=== PATIENT | male | born 1930 | race Caucasian/White ===

== ENCOUNTER 2016-12-27 12:21 | Emergency (ER) | payer MEDICARE ==
[~2016-12-27 12:21] MED LIST: ASPI81TA82 PO; BACT2OIN TOP; CLIN1CAP5 PO; GLUCTAB PO
[2016-12-27 12:30] VITALS: BP 141/87; PULSE 81; RESP 16; TEMP 98.1; O2SAT 97
[2016-12-27 12:48] LABS: AUTOMATED NEUTROPHIL # 2.7 TH/MM3 (1.8-7.7); BASOPHIL % 0.4 % (0.0-2.0); EOSINOPHIL % 0.5 % (0.0-4.0); HEMATOCRIT 24.7 % (39.0-51.0); HEMO FLAGS DIFF FINAL; LYMPH % 25.7 % (9.0-44.0); MEAN CELL VOLUME 90.3 FL (80.0-100.0); MEAN CORPUSCULAR HEMOGLOBIN 28.3 PG (27.0-34.0); MEAN CORPUSCULAR HGB CONC 31.3 % (32.0-36.0); NEUT % 68.4 % (16.0-70.0); PLATELET COUNT 113 TH/MM3 (150-450); RED BLOOD COUNT 2.74 MIL/MM3 (4.50-5.90); RED CELL DISTRIBUTION WIDTH 17.5 % (11.6-17.2)
[2016-12-27 13:06] LABS: APTT (PATIENT) 30.2 SEC (24.3-30.1); INTERNATIONAL NORMALIZED RATIO 1.1 RATIO; PROTHROMBIN TIME - PATIENT 12.7 SEC (9.8-11.6)
--- NOTE | 2016-12-27 13:07 | RADRPT ---
EXAM DATE/TIME: 12/27/2016 12:49 [facility] COMPARISON: CHEST SINGLE AP, June 01, 2013, 5:45. INDICATIONS : Chest pain. MEDICAL HISTORY : Hypertension. Myocardial infarction. SURGICAL HISTORY : CABG. ENCOUNTER: Initial ACUITY: 2 weeks PAIN SCORE: 6/10 LOCATION: Bilateral chest FINDINGS: Postsurgical features of prior median sternotomy. Mild diffuse interstitial prominence. Cardiac silho uette is mildly enlarged. Bony thorax is intact. CONCLUSION: 1. Postsurgical features. 2. Compensated cardiomegaly. 3. No acute abnormality or significant interval change. Roc Sherman MD on December 27, 2016 at 13:04 Board Certified Radiologist. This report was verified electronically.
[2016-12-27 13:08] LABS: BICARBONATE 27.5 MEQ/L (21.0-32.0); POTASSIUM 3.6 MEQ/L (3.5-5.1)
[2016-12-27 14:14] VITALS: BP 189/79; PULSE 96; RESP 19; O2SAT 99
[2016-12-27] MEDS ORDERED: ATEN25TA PO (14:14)
[2016-12-27] MEDS ORDERED: GABA100C4 PO (14:14)
[2016-12-27] MEDS ORDERED: XARE15TA PO (14:14)
[2016-12-27] MEDS ORDERED: MULT1TAB46 (14:14)
[2016-12-27] MEDS ORDERED: METF500T PO (14:14)
[2016-12-27] MEDS ORDERED: TAMS0.4C4 PO (14:14)
[2016-12-27] MEDS ORDERED: GLIM1TAB PO (14:14)
[2016-12-27] MEDS ORDERED: MELO-1 PO (14:14)
[2016-12-27] MEDS ORDERED: FURO20TA PO (14:14)
[2016-12-27] MEDS ORDERED: RANI150T PO (14:42)
--- NOTE | 2016-12-27 14:43 | PD ---
HPI Chief Complaint: Cardiac Complaint Time Seen by Provider: 13:50 Travel History International Travel<30 days: No Contact w/Intl Traveler<30days: No Traveled to known affect area: No History of Present Illness HPI Thin 86-year-old man who presents to the emergency department complaining of some chest discomfort. He states he gets that if he eats certain foods, or especially when he lays down at night. He does not get it with exertion. He does get short of breath with exertion ongoing for a while. 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 He looks otherwise well. He doesn 't take any medicine for gastritis or indigestion. History Past Medical History Narrative Medical Diabetes A. fib CAD, history of CABG Social History Alcohol Use: Yes (COUPLE OF BEERS DAILY) Tobacco Use: No Allergies-Medications (Allergen,Severity, Reaction): Coded Allergies: No Known Allergies (Verified , 12/27/16) Reported Meds & Prescriptions Reported Meds & Active Scripts Active Ranitidine (Ranitidine HCl) 150 Mg Tab 150 Mg PO BID Reported Multi Vitamin Daily (Multiple Vitamin) 1 Tab Tab Meloxicam 15 Mg Tab 15 Mg PO DAILY Atenolol 25 Mg Tab 25 Mg PO DAILY Furosemide 20 Mg Tab 20 Mg PO DAILY Metformin (Metformin HCl) 500 Mg Tab 500 Mg PO BIDPC With meals Glimepiride 1 Mg Tab 1 Mg PO DAILY Take with breakfast or first main meal Tamsulosin (Tamsulosin HCl) 0.4 Mg Cap 0.4 Mg PO HS Xarelto (Rivaroxaban) 15 Mg Tab 15 Mg PO DAILY Gabapentin 100 Mg Cap 100 Mg PO TID Review of Systems Except as stated in HPI: all other systems reviewed are Neg Physical Exam Narrative GENERAL: Well-appearing 86 year-old woman, no acute distress. SKIN: Focused skin assessment warm/dry. HEAD: Atraumatic. Normocephalic. EYES: Pupils equal and round. No scleral icterus. No injection or drainage. ENT: No nasal bleeding or discharge. Mucous membranes pink and moist. NECK: Trachea midline. No JVD. CARDIOVASCULAR: Regular rate and rhythm. No murmur appreciated. RESPIRATORY: No accessory muscle use. Clear to auscultation. Breath sounds equal bilaterally. GASTROINTESTINAL: Abdomen soft, non-tender, nondistended. Hepatic and splenic margins not palpable. MUSCULOSKELETAL: No obvious deformities. No clubbing. No cyanosis. No edema. NEUROLOGICAL: Awake and alert. No obvious cranial nerve deficits. Motor grossly within normal limits. Normal speech. PSYCHIATRIC: Appropriate mood and affect; insight and judgment normal. Data Data Last Documented VS Vital Signs Date Time Temp Pulse Resp B/P (MAP) Pulse Ox O2 Delivery O2 Flow Rate FiO2 12/27/16 14:14 99 Room Air 12/27/16 14:14 96 19 189/79 (115) 12/27/16 12:30 98.1 Orders Orders Electrocardiogram (12/27/16 12:29) Complete Blood Count With Diff (12/27/16 12:29) Basic Metabolic Panel (Bmp) (12/27/16 12:29) Ckmb (Isoenzyme) Profile (12/27/16 12:29) Troponin I (12/27/16 12:29) Chest, Single Ap (12/27/16 12:29) Iv Access Insert/Monitor (12/27/16 12:29) Ecg Monitoring (12/27/16 12:29) Oxygen Administration (12/27/16 12:29) Oximetry (12/27/16 12:29) Act Partial Throm Time (Ptt) (12/27/16 12:29) Prothrombin Time / Inr (Pt) (12/27/16 12:29) Labs Laboratory Tests Test 12/27/16 12:40 White Blood Count 4.0 TH/MM3 Red Blood Count 2.74 MIL/MM3 Hemoglobin 7.7 GM/DL Hematocrit 24.7 % Mean Corpuscular Volume 90.3 FL Mean Corpuscular Hemoglobin 28.3 PG Mean Corpuscular Hemoglobin Concent 31.3 % Red Cell Distribution Width 17.5 % Platelet Count 113 TH/MM3 Mean Platelet Volume 10.4 FL Neutrophils (%) (Auto) 68.4 % Lymphocytes (%) (Auto) 25.7 % Monocytes (%) (Auto) 5.0 % Eosinophils (%) (Auto) 0.5 % Basophils (%) (Auto) 0.4 % Neutrophils # (Auto) 2.7 TH/MM3 Lymphocytes # (Auto) 1.0 TH/MM3 Monocytes # (Auto) 0.2 TH/MM3 Eosinophils # (Auto) 0.0 TH/MM3 Basophils # (Auto) 0.0 TH/MM3 CBC Comment DIFF FINAL Differential Comment Prothrombin Time 12.7 SEC Prothromb Time International Ratio 1.1 RATIO Activated Partial Thromboplast Time 30.2 SEC Blood Urea Nitrogen 10 MG/DL Creatinine 0.88 MG/DL Random Glucose 145 MG/DL Calcium Level 8.2 MG/DL Sodium Level 140 MEQ/L Potassium Level 3.6 MEQ/L Chloride Level 106 MEQ/L Carbon Dioxide Level 27.5 MEQ/L Anion Gap 7 MEQ/L Estimat Glomerular Filtration Rate 82 ML/MIN Total Creatine Kinase 37 U/L Troponin I 0.02 NG/ML [facility] Medical Decision Making Medical Screen Exam Complete: Yes Emergency Medical Condition: Yes Interpretation(s) My review of EKG: Normal sinus rhythm rate of 73, slightly leftward axis, incomplete right bundle, no definite evidence of acute ischemia. LABS: CBC is remarkable for moderate anemia. Hemoglobin 7.7 Troponin negative BMP is unremarkable Differential Diagnosis Gastritis, reflux, ACS, pancreatitis, pericarditis, other Narrative Course Medical decision making 86 year-old woman who presents with indigestion symptoms. Routine labs show anemia that appears to be somewhat chronic. Her most recent lab tests or from 3 years ago. He has a primary doctor. I encouraged him to follow up with his primary doctor for repeat lab tests on Sunday. Diagnosis Primary Impression: Chest pain Additional Impression: Reflux esophagitis Additional Instructions: Take ranitidine as prescribed. Return to the emergency department for any new or worsening symptoms. Follow-up with your primary doctor in the next one to 3 days for repeat blood test for anemia. Med/Other Pt SpecificInfo: Prescription(s) given Scripts Ranitidine (Ranitidine) 150 Mg Tab 150 MG PO BID for Heartburn Management, #60 TAB 0 Refills Prov: Ash Gasca MD 12/27/16 Disposition: 01 DISCHARGE HOME Condition: Stable Ash Gasca MD Dec 27, 2016 14:43
[2016-12-27 14:49] VITALS: BP 188/79
--- NOTE | 2016-12-28 18:01 | EKG ---
Date Performed: 12/27/2016 Time Performed: 12:37:41 PTAGE: 86 years EKG: Sinus rhythm INCOMPLETE RIGHT BUNDLE BRANCH BLOCK BORDERLINE ECG Compared to prior tracing no significant change PREVIOUS TRACING : 06/01/2013 05.33 DOCTOR: Chandler Gibson Interpretating Date/Time 12/28/2016 18:01:15
== END 2016-12-27 15:01 | disposition home or self-care (01) ==
LOC: NEPE 12:21
DX: R07.89 Other chest pain (principal); R06.02 Shortness of breath; K21.0 Gastro-esophageal reflux disease with esophagitis; E11.9 Type 2 diabetes mellitus without complications; I48.91 Unspecified atrial fibrillation; Z79.01 Long term (current) use of anticoagulants; Z79.84 Long term (current) use of oral hypoglycemic drugs
CPT/HCPCS: 71010; 80048; 82550; 84484; 85025; 85610; 85730; 93005; 99283

== ENCOUNTER 2017-02-21 13:26 | Inpatient (IN) | payer MEDICARE ==
[~2017-02-21] VITALS: Ht 180.3 cm; Wt 74.0 kg
[2017-02-21] VITALS (14 sets, daily range): BP systolic 111–159; BP diastolic 55–97; PULSE 53–82; RESP 16–22; TEMP 98.1–98.6; O2SAT 94–100
[~2017-02-21 13:26] MED LIST changes: -ASPI81TA82 PO; +ATEN25TA PO; -BACT2OIN TOP; -CLIN1CAP5 PO; +FURO20TA PO; +GABA100C4 PO; +GLIM1TAB PO; -GLUCTAB PO; +MELO15TA20 PO; +METF500T PO; +MULT1TAB46 PO; +RANI150T PO; +TAMS0.4C4 PO; +XARE15TA PO
[2017-02-21] MEDS ORDERED: SODIUM CHLORIDE 0.9% FLUSH 10 ML FLUSH IVF PRN (13:45)
[2017-02-21] MEDS ORDERED: ASPIRIN 81 MG CHEW TAB PO ONE (13:45)
--- NOTE | 2017-02-21 13:56 | RADRPT ---
EXAM DATE/TIME: 02/21/2017 13:49 [facility] COMPARISON: CHEST SINGLE AP, December 27, 2016, 12:49. INDICATIONS : Chest pain and shortness of breath. MEDICAL HISTORY : Hypertension. Myocardial infarction SURGICAL HISTORY : CABG. CABG x 4. ENCOUNTER: Initial ACUITY: 1 day PAIN SCORE: 3/10 LOCATION: Bilateral chest FINDINGS: A single view of the chest demonstrates the lungs to be symmetrically aerated without evidence of mas s, infiltrate or effusion. Sternal wires from previous bypass are noted. Cardiac silhouette is prom inent.. Osseous structures are intact. CONCLUSION: Previous bypass, mild prominence cardiac silhouette. Margarito Hodge MD FACR on February 21, 2017 at 13:54 Board Certified Radiologist. This report was verified electronically.
[2017-02-21] MEDS ORDERED: diphenhydrAMINE HCL 25 MG CAP PO ONE (14:00)
[2017-02-21] MEDS ORDERED: SODIUM CHLOR 0.9% 250 ML INJ 250 ML IV ONE (14:00)
[2017-02-21] MEDS ORDERED: ACETAMINOPHEN 325 MG TAB PO ONE (14:00)
--- NOTE | 2017-02-21 14:08 | PD ---
HPI . Chest pain Chief Complaint: Chest Pain Time Seen by Provider: 13:33 Travel History International Travel<30 days: No Contact w/Intl Traveler<30days: No Traveled to known affect area: No History of Present Illness HPI This patient presents with a chief complaint of chest pain. Onset was this morning. He describes it as a pressure-like sensation. He states that his pain has improved following aspirin given by EMS as well as nitroglycerin sprays 5. Patient reports that he was seen by his primary care provider within the last day or 2 and was told that he was anemic globin of 7.8. He states that the doctor told him that if he had chest pain or shortness of breath , he should come to the emergency department for transfusion. He states that he developed the chest pain this morning and so called 911 and be brought here for further treatment. The patient reports chronic anemia. This patient is on Xarelto and Mobic. He has not noted any blood in his stool or dark, tarry stools. This patient also has a history of diabetes. Sugar was checked by EMS and found to be low at about 40. He was treated with IV dextrose. His fingerstick on arrival was greater than 200. PFSH Past Medical History Hx Anticoagulant Therapy: Yes (xarelto) Cancer: Yes (LEFT EAR) Cardiac Catheterization: Yes Cardiovascular Problems: Yes (CT/ 4 VESSEL BYPASS) Coronary Artery Disease: Yes Diabetes: Yes Patient Takes Glucophage: Yes Diminished Hearing: Yes Hypertension: Yes Myocardial Infarction: Yes Influenza Vaccination: No Past Surgical History Cardiac Surgery: Yes (CARDIAC ABLATION ) Coronary Artery Bypass Graft: Yes (X 4 IN 2000) Other Surgery: Yes (SKIN CANCER REMOVED LEFT EAR) Social History Alcohol Use: Yes (COUPLE OF BEERS FEW TIMES A WEEK) Tobacco Use: No Substance Use: No Allergies-Medications (Allergen,Severity, Reaction): Coded Allergies: No Known Allergies (Verified Allergy, Unknown, 02/21/17) Reported Meds & Prescriptions Reported Meds & Active Scripts Active Ranitidine (Ranitidine HCl) 150 Mg Tab 150 Mg PO BID Reported Multi Vitamin Daily (Multiple Vitamin) 1 Tab Tab 1 Tab PO DAILY Meloxicam 15 Mg Tab 15 Mg PO DAILY Atenolol 25 Mg Tab 25 Mg PO DAILY Furosemide 20 Mg Tab 20 Mg PO DAILY Metformin (Metformin HCl) 500 Mg Tab 500 Mg PO BIDPC With meals Glimepiride 1 Mg Tab 1 Mg PO DAILY Take with breakfast or first main meal Tamsulosin (Tamsulosin HCl) 0.4 Mg Cap 0.4 Mg PO HS Xarelto (Rivaroxaban) 15 Mg Tab 15 Mg PO DAILY Gabapentin 100 Mg Cap 100 Mg PO TID Review of Systems Except as stated in HPI: all other systems reviewed are Neg General / Constitutional: No: Fever, Chills HENT: No: Lightheadedness Cardiovascular: Positive: Chest Pain or Discomfort Respiratory: Positive: Shortness of Breath Gastrointestinal: No: Nausea, Vomiting, Diarrhea, Abdominal Pain, Constipation , Changes in Bowel Habits Physical Exam Narrative GENERAL: Healthy-appearing older gentleman in no acute distress. SKIN: warm/dry. HEAD: Normocephalic. Atraumatic. EYES: Pupils equal and round. No scleral icterus. No injection or drainage. ENT: No nasal bleeding or discharge. Mucous membranes pink and moist. NECK: Trachea midline. Full range of motion without pain.. CARDIOVASCULAR: Regular rate and rhythm. Heart sounds are normal. RESPIRATORY: No accessory muscle use. Clear to auscultation. Breath sounds equal bilaterally. GASTROINTESTINAL: Abdomen soft. Nontender. Bowel sounds present. Nondistended. RECTAL: Prostate is symmetrically enlarged. No prostate tenderness. Brown stool in the rectal vault. MUSCULOSKELETAL: No obvious deformities. NEUROLOGICAL: Awake and alert. No obvious cranial nerve deficits. Motor grossly within normal limits. Normal speech. PSYCHIATRIC: Appropriate mood and affect; insight and judgment normal. Data Data Last Documented VS Vital Signs Date Time Temp Pulse Resp B/P (MAP) Pulse Ox O2 Delivery O2 Flow Rate FiO2 02/21/17 13:54 60 141/63 (89) 02/21/17 13:49 22 99 Room Air 02/21/17 13:30 98.4 Orders Orders Electrocardiogram (02/21/17 13:34) Basic Metabolic Panel (Bmp) (02/21/17 13:34) Ckmb (Isoenzyme) Profile (02/21/17 13:34) Complete Blood Count With Diff (02/21/17 13:34) Magnesium (Mg) (02/21/17 13:34) Prothrombin Time / Inr (Pt) (02/21/17 13:34) Act Partial Throm Time (Ptt) (02/21/17 13:34) Troponin I (02/21/17 13:34) Chest, Single Ap (02/21/17 13:34) Ecg Monitoring (02/21/17 13:34) Bilateral Bp Monitoring (02/21/17 13:34) Iv Access Insert/Monitor (02/21/17 13:34) Oximetry (02/21/17 13:34) Aspirin Chew (Aspirin Chew) (02/21/17 13:45) Sodium Chloride 0.9% Flush (Ns Flush) (02/21/17 13:45) Type And Screen (02/21/17 13:52) Red Blood Cells (Rbc) (02/21/17 13:52) Blood Product Administration (02/21/17 13:52) Sodium Chlor 0.9% 250 Ml Inj (Ns 250 Ml (02/21/17 14:00) Diphenhydramine (Benadryl) (02/21/17 14:00) Acetaminophen (Tylenol) (02/21/17 14:00) Pantoprazole Inj (Protonix Inj) (02/21/17 14:15) Pantoprazole Inj (Protonix Inj) (02/21/17 14:15) Diet Heart Healthy (02/21/17 Dinner) Admit Order (Ed Use Only) (02/21/17 ) Vital Signs (Adult) Q4H (02/21/17 15:29) Diet 2000 Ada Cons Carb (02/21/17 Dinner) Activity Oob With Assistance (02/21/17 15:29) Notify Dr: Other (02/21/17 15:29) Labs Laboratory Tests Test 02/21/17 13:45 White Blood Count 4.0 TH/MM3 Red Blood Count 2.64 MIL/MM3 Hemoglobin 7.5 GM/DL Hematocrit 24.2 % Mean Corpuscular Volume 91.4 FL Mean Corpuscular Hemoglobin 28.4 PG Mean Corpuscular Hemoglobin Concent 31.1 % Red Cell Distribution Width 17.4 % Platelet Count 127 TH/MM3 Mean Platelet Volume 10.7 FL Neutrophils (%) (Auto) 69.9 % Lymphocytes (%) (Auto) 24.3 % Monocytes (%) (Auto) 5.0 % Eosinophils (%) (Auto) 0.6 % Basophils (%) (Auto) 0.2 % Neutrophils # (Auto) 2.8 TH/MM3 Lymphocytes # (Auto) 1.0 TH/MM3 Monocytes # (Auto) 0.2 TH/MM3 Eosinophils # (Auto) 0.0 TH/MM3 Basophils # (Auto) 0.0 TH/MM3 CBC Comment DIFF FINAL Differential Comment Prothrombin Time 14.0 SEC Prothromb Time International Ratio 1.3 RATIO Activated Partial Thromboplast Time 33.8 SEC Blood Urea Nitrogen 11 MG/DL Creatinine 0.99 MG/DL Random Glucose 241 MG/DL Calcium Level 8.4 MG/DL Magnesium Level 2.1 MG/DL Sodium Level 139 MEQ/L Potassium Level 4.0 MEQ/L Chloride Level 104 MEQ/L Carbon Dioxide Level 26.9 MEQ/L Anion Gap 8 MEQ/L Estimat Glomerular Filtration Rate 72 ML/MIN Total Creatine Kinase 41 U/L Troponin I LESS THAN 0.02 NG/ML [facility]DM Medical Decision Making Medical Screen Exam Complete: Yes Emergency Medical Condition: Yes Medical Record Reviewed: Yes (medical history is significant for diabetes, coronary artery disease status post CABG 4 vessels, atrial fibrillation and anemia.) Interpretation(s) EKG shows a sinus rhythm. No ST segment elevation or depression. No change from previous. Differential Diagnosis Differential diagnosis of chest pain includes but is not limited to musculoskeletal pain, pulmonary embolism, acute coronary syndrome, pneumonia, pleurisy Narrative Course This patient presents with chest pain associated with anemia. Chest pain has improved with aspirin and nitroglycerin which was given prior to arrival. Since he has anemia associated with chest pain, I have ordered a blood transfusion. Also, he is experiencing GI blood loss. I have added Protonix bolus and drip. CBC & BMP Diagram 02/21/17 13:45 Calcium Level 8.4 L, Magnesium Level 2.1 trop < 0.02 coags normal. Last Impressions Chest X-Ray 02/21/17 1334 Signed Impressions: Service Date/Time: Tuesday, February 21, 2017 13:49 - CONCLUSION: Previous bypass, mild prominence cardiac silhouette. Margarito Hodge MD FACR [employer] Point of Care Internal Pos. & Neg. Controls: Passed Fecal Specimen Occult Blood: Positive Physician Communication Physician Communication Dr. Sanchez will admit Diagnosis Primary Impression: Chest pain Qualified Codes: R07.9 - Chest pain, unspecified Additional Impressions: Anemia Qualified Codes: D50.0 - Iron deficiency anemia secondary to blood loss ( chronic) GI (gastrointestinal bleed) Qualified Codes: K92.2 - Gastrointestinal hemorrhage, unspecified Admitting Information Admitting Physician Requests: Admit Condition: Stable Marya Lance MD Feb 21, 2017 14:08
[2017-02-21 14:09] LABS: AUTOMATED NEUTROPHIL # 2.8 TH/MM3 (1.8-7.7); BASOPHIL % 0.2 % (0.0-2.0); EOSINOPHIL % 0.6 % (0.0-4.0); HEMATOCRIT 24.2 % (39.0-51.0); HEMO FLAGS DIFF FINAL; LYMPH % 24.3 % (9.0-44.0); MEAN CELL VOLUME 91.4 FL (80.0-100.0); MEAN CORPUSCULAR HEMOGLOBIN 28.4 PG (27.0-34.0); MEAN CORPUSCULAR HGB CONC 31.1 % (32.0-36.0); NEUT % 69.9 % (16.0-70.0); PLATELET COUNT 127 TH/MM3 (150-450); RED BLOOD COUNT 2.64 MIL/MM3 (4.50-5.90); RED CELL DISTRIBUTION WIDTH 17.4 % (11.6-17.2)
[2017-02-21 14:15] LABS: APTT (PATIENT) 33.8 SEC (24.3-30.1); INTERNATIONAL NORMALIZED RATIO 1.3 RATIO
[2017-02-21] MEDS ORDERED: PANTOPRAZOLE INJ 80 MG in SODIUM CHLORIDE 0.9% INJ 35 ML IV ONE (14:15)
[2017-02-21 14:22] LABS: ANION GAP 8 MEQ/L (5-15); BICARBONATE 26.9 MEQ/L (21.0-32.0); BLOOD UREA NITROGEN 11 MG/DL (7-18); CHLORIDE 104 MEQ/L (98-107); GLOMERULAR FILTRATION RATE 72 ML/MIN (>89); MAGNESIUM 2.1 MG/DL (1.5-2.5); SODIUM (NA) 139 MEQ/L (136-145)
[2017-02-21 14:29] LABS: CREATINE KINASE 41 U/L (39-308)
[2017-02-21] MEDS: PANTOPRAZOLE INJ 80 MG in SODIUM CHLORIDE 0.9% INJ 100 ML IV SCH (15:52)
--- NOTE | 2017-02-21 15:57 | HHI.HP ---
[facility] Margarito Mendoza, DO Admission Diagnosis CP, anemia, GI bleed Diagnoses: (1) Symptomatic anemia (2) Chest pain (3) GI (gastrointestinal bleed) Chief Complaint: Chest pain and shortness of breath Travel History International Travel<30 Days: No Contact w/Intl Traveler <30 Da: No Traveled to Known Affected Are: No History of Present Illness 86 year-old male with a history of diabetes type 2, atrial fibrillation was brought to the ED today for evaluation of an acute onset of chest pain or shortness of breath which started this morning and improved with aspirin as well as nitroglycerin sprays 5 given by EMS.. Patient complained of initial dull, pressure-like chest pain without any radiation associated with shortness of breath. He was seen couple weeks ago by his PCP, who has been monitoring his H&H. Patient was told he may have PUD. He has a positive fecal occult blood test in the ED however denies noting any blood in his stool. He also denies any hemoptysis or hematuria. Review of Systems Except as stated in HPI: all other systems reviewed are Neg Past Family Social History Past Medical History Hx Anticoagulant Therapy: Yes (xarelto) Cancer: Yes (LEFT EAR) Cardiac Catheterization: Yes Cardiovascular Problems: Yes ([place]/ 4 VESSEL BYPASS) Coronary Artery Disease: Yes Diabetes: Yes Patient Takes Glucophage: Yes Diminished Hearing: Yes Hypertension: Yes Myocardial Infarction: Yes Past Surgical History Cardiac Surgery: Yes (CARDIAC ABLATION ) Coronary Artery Bypass Graft: Yes (X 4 IN 2000) Other Surgery: Yes (SKIN CANCER REMOVED LEFT EAR) Reported Medications Multi Vitamin Daily (Multiple Vitamin) 1 Tab Tab 1 Tab PO DAILY Meloxicam 15 Mg Tab 15 Mg PO DAILY Atenolol 25 Mg Tab 25 Mg PO DAILY Furosemide 20 Mg Tab 20 Mg PO DAILY Metformin (Metformin HCl) 500 Mg Tab 500 Mg PO BIDPC With meals Glimepiride 1 Mg Tab 1 Mg PO DAILY Take with breakfast or first main meal Tamsulosin (Tamsulosin HCl) 0.4 Mg Cap 0.4 Mg PO HS Xarelto (Rivaroxaban) 15 Mg Tab 15 Mg PO DAILY Gabapentin 100 Mg Cap 100 Mg PO TID Allergies: Coded Allergies: No Known Allergies (Verified Allergy, Unknown, 02/21/17) Family History Due to patient's advanced age, family history not relevant Social History Alcohol Use: Yes (COUPLE OF BEERS FEW TIMES A WEEK) Tobacco Use: No Substance Use: No Physical Exam Vital Signs Vital Signs Date Time Temp Pulse Resp B/P (MAP) Pulse Ox O2 Delivery O2 Flow Rate FiO2 02/21/17 15:45 69 111/55 (73) 02/21/17 13:54 60 141/63 (89) 02/21/17 13:49 70 22 99 Room Air 02/21/17 13:38 94 Room Air 02/21/17 13:30 98.4 82 18 149/68 (95) 96 Physical Exam GENERAL: This is a well-nourished, well-developed patient, in no apparent distress. SKIN: No rashes, ecchymoses or lesions. Cool and dry. HEAD: Atraumatic. Normocephalic. No temporal or scalp tenderness. EYES: Pupils equal round and reactive. Extraocular motions intact. No scleral icterus. No injection or drainage. ENT: Nose without bleeding, purulent drainage or septal hematoma. Throat without erythema, tonsillar hypertrophy or exudate. Uvula midline. Airway patent. NECK: Trachea midline. No JVD or lymphadenopathy. Supple, nontender, no meningeal signs. CARDIOVASCULAR: Regular rate and rhythm without murmurs, gallops, or rubs. RESPIRATORY: Clear to auscultation. Breath sounds equal bilaterally. No wheezes , rales, or rhonchi. GASTROINTESTINAL: Abdomen soft, non-tender, nondistended. No hepato-splenomegaly , or palpable masses. No guarding. MUSCULOSKELETAL: Extremities without clubbing, cyanosis, or edema. Left BKA NEUROLOGICAL: Awake and alert. Cranial nerves II through XII intact. Motor and sensory grossly within normal limits. Five out of 5 muscle strength in all muscle groups. Normal speech. Laboratory Laboratory Tests Test 02/21/17 13:45 White Blood Count 4.0 Red Blood Count 2.64 Hemoglobin 7.5 Hematocrit 24.2 Mean Corpuscular Volume 91.4 Mean Corpuscular Hemoglobin 28.4 Mean Corpuscular Hemoglobin Concent 31.1 Red Cell Distribution Width 17.4 Platelet Count 127 Mean Platelet Volume 10.7 Neutrophils (%) (Auto) 69.9 Lymphocytes (%) (Auto) 24.3 Monocytes (%) (Auto) 5.0 Eosinophils (%) (Auto) 0.6 Basophils (%) (Auto) 0.2 Neutrophils # (Auto) 2.8 Lymphocytes # (Auto) 1.0 Monocytes # (Auto) 0.2 Eosinophils # (Auto) 0.0 Basophils # (Auto) 0.0 CBC Comment DIFF FINAL Differential Comment Prothrombin Time 14.0 Prothromb Time International Ratio 1.3 Activated Partial Thromboplast Time 33.8 Blood Urea Nitrogen 11 Creatinine 0.99 Random Glucose 241 Calcium Level 8.4 Magnesium Level 2.1 Sodium Level 139 Potassium Level 4.0 Chloride Level 104 Carbon Dioxide Level 26.9 Anion Gap 8 Estimat Glomerular Filtration Rate 72 Total Creatine Kinase 41 Troponin I LESS THAN 0.02 Result Diagram: 02/21/17 1345 02/21/17 1345 Imaging Last Impressions Chest X-Ray 02/21/17 1334 Signed Impressions: Service Date/Time: Tuesday, February 21, 2017 13:49 - CONCLUSION: Previous bypass, mild prominence cardiac silhouette. Margarito Hodge MD FACR Caprini VTE Risk Assessment Caprini VTE Risk Assessment: Mod/High Risk (score >= 2) Caprini Risk Assessment Model Point Value = 1 Point Value = 2 Point Value = 3 Point Value = 5 Age 41-60 Minor surgery BMI > 25 kg/m2 Swollen legs Varicose veins or History of unexplained or recurrent spontaneous Oral contraceptives or hormone replacement Sepsis (< 1 month) Serious lung disease, including pneumonia (< 1 month) Abnormal pulmonary function Acute myocardial infarction Congestive heart failure (< 1 month) History of inflammatory bowel disease Medical patient at bed rest Age 61-74 Arthroscopic surgery Major open surgery (> 45 min) Laparoscopic surgery (> 45 min) Malignancy Confined to bed (> 72 hours) Immobilizing plaster cast Central venous access Age >= 75 History of VTE Family history of VTE Factor V Leiden Prothrombin [id number] Lupus anticoagulant Anticardiolipin antibodies Elevated serum homocysteine Heparin-induced thrombocytopenia Other congenital or acquired thrombophilia Stroke (< 1 month) Elective arthroplasty Hip, pelvis, or leg fracture Acute spinal cord injury (< 1 month) Prophylaxis Regimen Total Risk Factor Score Risk Level Prophylaxis Regimen 0-1 Low Early ambulation 2 Moderate Order ONE of the following: *Sequential Compression Device (SCD) *Heparin 5000 units SQ BID 3-4 Higher Order ONE of the following medications: *Heparin 5000 units SQ TID *Enoxaparin/Lovenox 40 mg SQ daily (WT < 150 kg, CrCl > 30 mL/min) *Enoxaparin/Lovenox 30 mg SQ daily (WT < 150 kg, CrCl > 10-29 mL/min) *Enoxaparin/Lovenox 30 mg SQ BID (WT < 150 kg, CrCl > 30 mL/min) AND/OR *Sequential Compression Device (SCD) 5 or more Highest Order ONE of the following medications: *Heparin 5000 units SQ TID (Preferred with Epidurals) *Enoxaparin/Lovenox 40 mg SQ daily (WT < 150 kg, CrCl > 30 mL/min) *Enoxaparin/Lovenox 30 mg SQ daily (WT < 150 kg, CrCl > 10-29 mL/min) *Enoxaparin/Lovenox 30 mg SQ BID (WT < 150 kg, CrCl > 30 mL/min) AND *Sequential Compression Device (SCD) Assessment and Plan Problem List: (1) Symptomatic anemia ICD Code: D64.9 - Anemia, unspecified (2) Chest pain ICD Code: R07.9 - Chest pain, unspecified Status: Acute (3) GI (gastrointestinal bleed) ICD Code: K92.2 - Gastrointestinal hemorrhage, unspecified Status: Acute Assessment and Plan 86-year-old man with Symptomatic anemia Transfuse 2 units packed red blood cell Gastroenterology consultation pending for evaluation for possible colonoscopy versus EGD H&H monitoring Continue PPI GI bleed Aspirin chronically consultation for evaluation for possible EGD versus colonoscopy Hold Xarelto Atypical chest pain May be secondary to anemia Although first set cardiac enzyme and EKG unremarkable, continue to rule out ACS per protocol Diabetes type 2 Start insulin sliding scale and resume outpatient medications History of hypertension, and other chronic medical conditions Resume outpatient medications DVT prophylaxis: Chemical anti-prophylaxis is contraindicated GI prophylaxis: PPI Code Status Full code Discussed Condition With Patient, ED physician Physician Certification 2 Midnight Certification Type: Admission for Inpatient Services Order for Inpatient Services The services are ordered in accordance with Medicare regulations or non- Medicare payer requirements, as applicable. In the case of services not specified as inpatient-only, they are appropriately provided as inpatient services in accordance with the 2-midnight benchmark. Estimated LOS (days): 2 days is the estimated time the patient will need to remain in the hospital, assuming treatment plan goals are met and no additional complications. Post-Hospital Plan: Not yet determined Problem Qualifiers (1) Chest pain: Qualified Codes: R07.9 - Chest pain, unspecified (2) GI (gastrointestinal bleed): Qualified Codes: K92.2 - Gastrointestinal hemorrhage, unspecified Bear Sanchez MD Feb 21, 2017 15:57
[2017-02-21] MEDS ORDERED: GLUCAGON 1 MG/ML VIAL OTHER PRN ×2 (16:00→17:45)
[2017-02-21] MEDS ORDERED: DEXTROSE 50% IN WATER 50 ML VIAL(D50) IV PUSH PRN ×2 (16:00→17:45)
[2017-02-21] MEDS ORDERED: SODIUM CHLORIDE 0.9% FLUSH 10 ML FLUSH IV FLUSH PRN (16:00)
[2017-02-21] MEDS ORDERED: ACETAMINOPHEN 325 MG TAB PO PRN ×2 (16:00)
[2017-02-21] MEDS ORDERED: ONDANSETRON HCL 4 MG/2 ML VIAL IVP PRN (16:00)
[2017-02-21] MEDS ORDERED: NALOXONE HCL 0.4 MG/ML AMP IV PUSH PRN (16:00)
[2017-02-21] MEDS: INSULIN ASPART SUPPLEMENTAL SCALE SQ SCH ×2 (17:00→21:00)
[2017-02-21] MEDS: GABAPENTIN 100 MG CAP PO SCH (19:19)
[2017-02-21] MEDS: metFORMIN HCL 500 MG TAB PO SCH (19:19)
--- NOTE | 2017-02-21 19:40 | EKG ---
Date Performed: 02/21/2017 Time Performed: 13:38:16 PTAGE: 86 years EKG: Sinus rhythm WITH FIRST DEGREE AV BLOCK INCOMPLETE RIGHT BUNDLE BRANCH BLOCK ABNORMAL ECG No significant change f rom prior electrocardiogram. DOCTOR: Hilton Rodriguez Interpretating Date/Time 02/21/2017 19:39:20
[2017-02-21 20:10] LABS: CREATINE KINASE 36 U/L (39-308)
--- NOTE | 2017-02-21 20:35 | EKG ---
Date Performed: 02/21/2017 Time Performed: 19:31:12 PTAGE: 86 years EKG: Sinus rhythm WITH FIRST DEGREE AV BLOCK MODERATE INTRAVENTRICULAR CONDUCTION DELAY ABNORMAL ECG Compared to prior electrocardiogram, [place] interval has lengthened. PREVIOUS TRACING : 02/21/2017 13.38 DOCTOR: Hilton Rodriguez Interpretating Date/Time 02/21/2017 20:33:08
[2017-02-21] MEDS ORDERED: TAMSULOSIN HCL 0.4 MG CAP PO SCH (21:00)
[2017-02-21] MEDS ORDERED: SODIUM CHLORIDE 0.9% FLUSH 10 ML FLUSH IV FLUSH SCH (21:00)
[2017-02-21] MEDS ORDERED: INSULIN ASPART SUPPLEMENTAL SCALE SQ SCH (21:00)
[2017-02-21] MEDS: ACETAMINOPHEN/HYDROcodone 325 MG/5 MG TAB PO PRN (21:06)
[2017-02-22 03:18] VITALS: BP 172/79; PULSE 90; RESP 18; TEMP 98.1; O2SAT 94
[2017-02-22 04:21] LABS: AUTOMATED NEUTROPHIL # 3.2 TH/MM3 (1.8-7.7); BASOPHIL % 0.1 % (0.0-2.0); EOSINOPHIL # 0.1 TH/MM3 (0-0.4); EOSINOPHIL % 1.5 % (0.0-4.0); HEMATOCRIT 28.1 % (39.0-51.0); HEMO FLAGS DIFF FINAL; LYMPH % 28.5 % (9.0-44.0); LYMPHOCYTE # 1.4 TH/MM3 (1.0-4.8); MEAN CELL VOLUME 89.2 FL (80.0-100.0); MEAN CORPUSCULAR HEMOGLOBIN 28.8 PG (27.0-34.0); MEAN CORPUSCULAR HGB CONC 32.3 % (32.0-36.0); MONO % 5.7 % (0.0-8.0); NEUT % 64.2 % (16.0-70.0); PLATELET COUNT 108 TH/MM3 (150-450); RED BLOOD COUNT 3.15 MIL/MM3 (4.50-5.90); RED CELL DISTRIBUTION WIDTH 17.8 % (11.6-17.2)
[2017-02-22 04:52] LABS: ALKALINE PHOSPHATASE 55 U/L (45-117); ALT (GPT) 22 U/L (12-78); ANION GAP 9 MEQ/L (5-15); AST (GOT) 15 U/L (15-37); BICARBONATE 27.3 MEQ/L (21.0-32.0); BLOOD UREA NITROGEN 16 MG/DL (7-18); CHLORIDE 105 MEQ/L (98-107); GLOMERULAR FILTRATION RATE 64 ML/MIN (>89); POTASSIUM 4.1 MEQ/L (3.5-5.1); SODIUM (NA) 141 MEQ/L (136-145); TOTAL BILIRUBIN ADULT 0.8 MG/DL (0.2-1.0)
[2017-02-22] MEDS: ACETAMINOPHEN/HYDROcodone 325 MG/5 MG TAB PO PRN (05:17)
[2017-02-22] MEDS: PANTOPRAZOLE INJ 80 MG in SODIUM CHLORIDE 0.9% INJ 100 ML IV SCH (06:43)
--- NOTE | 2017-02-22 07:32 | EKG ---
Date Performed: 02/22/2017 Time Performed: 02:07:38 PTAGE: 86 years EKG: Sinus rhythm WITH FIRST DEGREE AV BLOCK LOW QRS VOLTAGE IN EXTREMITY LEADS INCOMPLETE RIGHT BUNDLE BRANCH BLOCK A BNORMAL ECG No significant change from prior electrocardiogram. PREVIOUS TRACING : 02/21/2017 19.31 DOCTOR: Hilton Rodriguez Interpretating Date/Time 02/22/2017 07:31:51
[2017-02-22 07:36] VITALS: BP 176/76; PULSE 85; RESP 22; TEMP 97.6; O2SAT 92
[2017-02-22] MEDS: INSULIN ASPART SUPPLEMENTAL SCALE SQ SCH (08:00)
[2017-02-22] MEDS ORDERED: GLIMEPIRIDE 1 MG TAB PO SCH (09:00)
[2017-02-22] MEDS ORDERED: ATENOLOL 25 MG TAB PO SCH (09:00)
[2017-02-22] MEDS ORDERED: FUROSEMIDE 20 MG TAB PO SCH (09:00)
[2017-02-22] MEDS: metFORMIN HCL 500 MG TAB PO SCH (09:00)
[2017-02-22] MEDS: GABAPENTIN 100 MG CAP PO SCH (09:00)
--- NOTE | 2017-02-22 09:37 | HHI.PR ---
Subjective Remarks in no acute distress. denies chest pain or sob. says that ' he wants to leave right away'. Objective Vitals Vital Signs Date Time Temp Pulse Resp B/P (MAP) Pulse Ox O2 Delivery O2 Flow Rate FiO2 02/22/17 07:36 97.6 85 22 176/76 (109) 92 02/22/17 03:18 98.1 90 18 172/79 (110) 94 02/21/17 23:32 98.6 54 18 128/60 (82) 96 02/21/17 23:01 98.4 53 16 140/66 95 02/21/17 22:24 98.1 55 19 144/62 95 02/21/17 21:11 98.2 73 19 159/70 (99) 94 02/21/17 20:07 02/21/17 19:58 98.3 76 18 152/97 98 02/21/17 18:30 74 18 145/70 (95) 98 Nasal Cannula 2.00 02/21/17 17:45 75 19 136/62 (86) 99 Nasal Cannula 2.00 02/21/17 16:45 62 18 147/63 (91) 99 Nasal Cannula 2.00 02/21/17 16:36 98.4 61 22 133/65 100 02/21/17 16:15 98.3 69 19 148/65 98 02/21/17 15:45 69 111/55 (73) 02/21/17 13:54 60 141/63 (89) 02/21/17 13:49 70 22 99 Room Air 02/21/17 13:38 94 Room Air 02/21/17 13:30 98.4 82 18 149/68 (95) 96 I/O 02/21/17 02/21/17 02/21/17 02/22/17 02/22/17 02/22/17 07:00 15:00 23:00 07:00 15:00 23:00 Intake Total 1205 ml 400 ml Output Total 300 ml 200 ml Balance 905 ml 400 ml -200 ml Intake Oral 240 ml IV Total 35 ml Packed Cells 400 ml 400 ml Blood Product IV Normal Saline Flush 530 ml Output Urine Total 300 ml 200 ml # Voids 1 Result Diagram: 02/22/1740902/22/17409 Imaging Last Impressions Chest X-Ray 02/21/17 1334 Signed Impressions: Service Date/Time: Tuesday, February 21, 2017 13:49 - CONCLUSION: Previous bypass, mild prominence cardiac silhouette. Margarito Hodge MD FACR Objective Remarks GENERAL: This is a well-nourished, well-developed patient, in no apparent distress. CARDIOVASCULAR: Regular rate and regular rhythm without murmurs, gallops, or rubs. RESPIRATORY: Clear to auscultation. Breath sounds equal bilaterally. No wheezes , rales, or rhonchi. GASTROINTESTINAL: Abdomen soft, non-tender, nondistended. Normal, active bowel sounds MUSCULOSKELETAL: Extremities without clubbing, cyanosis, or edema. NEURO: Alert & Oriented x4 to person, place, time, situation. Moves all ext x4 Medications and IVs Current Medications Aspirin (Aspirin Chew) 324 mg ONCE ONCE PO ; Start 02/21/17 at 13:45; Stop 02/21/17 at 13:53; Status DC Sodium Chloride (NS Flush) 2 ml UNSCH PRN IVF FLUSH AFTER USING IV ACCESS; Start 02/21/17 at 13:45; Stop 02/21/17 at 18:15; Status DC Sodium Chloride 250 ml @ 15 mls/hr ONCE ONCE IV Last administered on 16:27; Start 02/21/17 at 14:00; Stop 02/22/17 at 06:39; Status DC Diphenhydramine HCl (Benadryl) 25 mg ONCE ONCE PO Last administered on 15:54; Start 02/21/17 at 14:00; Stop 02/21/17 at 14:01; Status DC Acetaminophen (Tylenol) 650 mg ONCE ONCE PO Last administered on 02/21/17 15: 54; Start 02/21/17 at 14:00; Stop 02/21/17 at 14:01; Status DC Pantoprazole Sodium 80 mg/ Sodium Chloride 100 ml @ 10 mls/hr CONTINUOUS IV Last administered on 02/22/17 06:43; Start 02/21/17 at 14:15 Pantoprazole Sodium 80 mg/ Sodium Chloride 35 ml @ 420 mls/hr BOLUS ONCE IV Last administered on 02/21/17 15:51; Start 02/21/17 at 14:15; Stop 02/21/17 at 14:19; Status DC Sodium Chloride (NS Flush) 2 ml UNSCH PRN IV FLUSH FLUSH AFTER USING IV ACCESS ; Start 02/21/17 at 16:00 Sodium Chloride (NS Flush) 2 ml BID IV FLUSH ; Start 02/21/17 at 21:00 Acetaminophen (Tylenol) 650 mg Q4H PRN PO TEMP > 100.4; Start 02/21/17 at 16:00 Ondansetron HCl (Zofran Inj) 4 mg Q6H PRN IVP NAUSEA OR VOMITING; Start at 16:00 Acetaminophen (Tylenol) 650 mg Q6H PRN PO PAIN SCALE 1 TO 2; Start 02/21/17 at 16:00 Acetaminophen/ Hydrocodone Bitart ([place] 5-325 Mg) 1 tab Q4H PRN PO PAIN SCALE 3 TO 5 Last administered on 02/22/17 05:17; Start 02/21/17 at 16:00 Naloxone HCl (Narcan Inj) 0.4 mg UNSCH PRN IV PUSH SEE LABEL COMMENTS; Start 02/21/17 at 16:00 Dextrose (D50w (Vial) Inj) 50 ml UNSCH PRN IV PUSH HYPOGLYCEMIA-SEE COMMENTS; Start 02/21/17 at 16:00; Stop 02/21/17 at 18:15; Status DC Glucagon (Glucagon Inj) 1 mg UNSCH PRN OTHER HYPOGLYCEMIA-SEE COMMENTS; Start 02/21/17 at 16:00 Insulin Aspart (NovoLOG SUPPLEMENTAL SCALE) 1 ACHS SLIDING SCALE SQ ; Start at 17:00 Atenolol (Tenormin) 25 mg DAILY PO ; Start 02/22/17 at 09:00 Furosemide (Lasix) 20 mg DAILY PO ; Start 02/22/17 at 09:00 Gabapentin (Neurontin) 100 mg TID PO Last administered on 02/21/17 19:19; Start 02/21/17 at 18:00 Glimepiride (Amaryl) 1 mg DAILY PO ; Start 02/22/17 at 09:00 Metformin HCl (Glucophage) 500 mg BIDPC PO Last administered on 02/21/17 19:19 ; Start 02/21/17 at 18:30 Tamsulosin HCl (Flomax) 0.4 mg HS PO Last administered on 02/21/17 21:06; Start 02/21/17 at 21:00 Dextrose (D50w (Vial) Inj) 50 ml UNSCH PRN IV PUSH HYPOGLYCEMIA-SEE COMMENTS; Start 02/21/17 at 17:45 Glucagon (Glucagon Inj) 1 mg UNSCH PRN OTHER HYPOGLYCEMIA-SEE COMMENTS; Start 02/21/17 at 17:45; Status UNV Insulin Aspart (NovoLOG SUPPLEMENTAL SCALE) 1 ACHS SLIDING SCALE SQ ; Start at 21:00; Stop 02/21/17 at 21:00; Status DC A/P Problem List: (1) Symptomatic anemia ICD Code: D64.9 - Anemia, unspecified (2) Chest pain ICD Code: R07.9 - Chest pain, unspecified Status: Acute (3) GI (gastrointestinal bleed) ICD Code: K92.2 - Gastrointestinal hemorrhage, unspecified Status: Acute Assessment and Plan Symptomatic anemia Transfused 2 units packed red blood cell Gastroenterology consultation pending for evaluation for possible colonoscopy versus EGD H&H monitoring Continue PPI GI bleed GI consultation for evaluation for possible EGD versus colonoscopy Hold Xarelto Atypical chest pain May be secondary to anemia cardiac enzymes negative. Diabetes type 2 Started insulin sliding scale and resume outpatient medications History of hypertension, and other chronic medical conditions Resumed outpatient medications DVT prophylaxis: Chemical prophylaxis is contraindicated GI prophylaxis: PPI Discharge Planning the importance of GI work-up was explained to the patient but he wants to leave against medical advise. this was d/w the RN. Problem Qualifiers (1) Chest pain: Qualified Codes: R07.9 - Chest pain, unspecified (2) GI (gastrointestinal bleed): Qualified Codes: K92.2 - Gastrointestinal hemorrhage, unspecified Zia Short MD Feb 22, 2017 09:37
== END 2017-02-22 11:33 | disposition left against medical advice (07) | DRG 812 ==
LOC: NEPC 13:26 → NEDA 15:31 → NEPHCDU 20:06
PROVIDERS: ADMIT Internal Medicine; ATTEND Internal Medicine
PROC: 30233N1 Transfusion of Nonautologous Red Blood Cells into Peripheral Vein, Percutaneous Approach (ICD-10-PCS; principal; 2017-02-21)
DX: D64.9 Anemia, unspecified (principal); K92.2 Gastrointestinal hemorrhage, unspecified; I48.91 Unspecified atrial fibrillation; Z79.02 Long term (current) use of antithrombotics/antiplatelets; R07.89 Other chest pain; I10 Essential (primary) hypertension; E11.9 Type 2 diabetes mellitus without complications; Z79.84 Long term (current) use of oral hypoglycemic drugs; I25.10 Atherosclerotic heart disease of native coronary artery without angina pectoris; I25.2 Old myocardial infarction; Z95.1 Presence of aortocoronary bypass graft; Z85.828 Personal history of other malignant neoplasm of skin; H91.90 Unspecified hearing loss, unspecified ear
CPT/HCPCS: 36430; 71010; 80048; 80053; 82550; 82948; 83735; 84484; 85025; 85610; 85730; 86850; 86900; 86901; 86920; 93005; C9113; J7050; P9016

== ENCOUNTER 2017-11-01 15:11 | Observation (INO) ==
--- NOTE | 2017-11-01 15:37 | ED ---
HPI General Chief Complaint: Chest Pain Stated Complaint: chest pain/evac Time Seen by Provider: 11/01/17 15:23 Source: patient and old records reviewed Mode of arrival: EMS Limitations: no limitations History of Present Illness HPI narrative: The patient is an 87-year-old male with history of coronary artery disease status post CABG 5 vessels anemia, diabetes mellitus presbycusis and a chronic right lateral ankle wound present with complaint of atypical chest pain since yesterday relieved by nitroglycerin. Patient denies pain at this time. 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 He had a wound VAC in the past and he was up until recently on Augmentin p.o. but she was not able to complete the course because he could not tolerate the Augmentin resulting in 2 abdominal discomfort and diarrhea. Patient is afebrile at this time with O2 saturation 93% in room air. He will be placed on nasal cannula we will initiate cardiac workup. MD complaint: chest pain Complete Quality Measures for STEMI Alert Patients STEMI Alert: No Onset (ago): day(s) (1) Duration: intermittent Onset: during rest Pain location: substernal Severity: similar to previous episodes Severity scale (1-10): 8 Quality: tightness Pain radiation: none Relieving factors: nitroglycerin Exacerbating factors: nothing Treatments prior to arrival chest pain: nitroglycerin Related Data Home Medications Medication Instructions Recorded Confirmed atenolol 25 mg PO BID 11/01/17 11/01/17 coenzyme Q10 [Co Q-10] 30 mg PO DAILY 11/01/17 11/01/17 docusate sodium 100 mg PO DAILY 11/01/17 11/01/17 duloxetine 30 mg PO DAILY 11/01/17 11/01/17 furosemide [Lasix] 20 mg PO DAILY 11/01/17 11/01/17 gabapentin 100 mg PO TID 11/01/17 11/01/17 glimepiride 0.5 mg PO QAM 11/01/17 11/01/17 meloxicam 15 mg PO DAILY 11/01/17 11/01/17 metformin 500 mg PO BID 11/01/17 11/01/17 nitroglycerin 0.3 mg SUBLINGUAL Q5-15M PRN 11/01/17 11/01/17 oxycodone 5 mg PO Q4-6H PRN 11/01/17 11/01/17 sucralfate 1 g PO BID 11/01/17 11/01/17 tamsulosin [Flomax] 0.4 mg PO DAILY 11/01/17 11/01/17 Allergies Allergy/AdvReac Type Severity Reaction Status Date / Time No Known Allergies Allergy Unknown Uncoded 02/21/17 14:37 Review of Systems ROS Unobtainable All other systems reviewed negative except as stated in HPI Constitutional Denies fever(s) [facility] Medical History Medical History Anemia (Acute) Diabetes mellitus (Acute) Hard of hearing (Acute) History of left below knee amputation (Acute) Surgical History Surgical History Status post cardiac revascularization with bypass aortocoronary anastomosis of five coronary vessels (Acute) Social History Social History Substance History: No History of Abuse Second Hand Smoke Exposure: No Smoking Status: Former smoker Tobacco Type: Cigarettes How Often Do You Have a Drink Containing Alcohol: Monthly or less Recent Travel in [facility] within the Last 8 Weeks: No Recent Out of Country Travel within the Last 8 Weeks: No Immunization History Tetanus Immunization: >5 Years Hx Influenza Vaccine This Season: No Exam Narrative Exam Narrative: GENERAL: Alert and oriented in no distress well-developed well- nourished SKIN: Focused skin assessment warm/dry. HEAD: Atraumatic. Normocephalic. EYES: Pupils equal and round. No scleral icterus. No injection or drainage. ENT: No nasal bleeding or discharge. Mucous membranes pink and moist. NECK: Trachea midline. No JVD. CARDIOVASCULAR: Regular rate and rhythm. No murmur appreciated. RESPIRATORY: No accessory muscle use. Clear to auscultation. Breath sounds equal bilaterally. GASTROINTESTINAL: Abdomen soft, non-tender, nondistended. Hepatic and splenic margins not palpable. MUSCULOSKELETAL: No obvious deformities. No clubbing. No cyanosis. No edema. NEUROLOGICAL: Awake and alert. No obvious cranial nerve deficits. Motor grossly within normal limits. Normal speech. PSYCHIATRIC: Appropriate mood and affect; insight and judgment normal. Course Reevaluation(s) Reevaluation #1: Patient in no distress stable vitals blood pressure 130/59. Hemoglobin 7.2. Rectal exam was performed and occult was negative. Time: 17:18 Initial Documented Vital Signs Pulse Rate 81 11/01/17 15:14 Respiratory Rate 18 11/01/17 15:14 Blood Pressure 132/59 L 11/01/17 15:14 Pulse Oximetry 93 L 11/01/17 15:14 Last Documented Vital Signs Temperature 98.6 F 11/02/17 12:00 Pulse Rate 69 11/02/17 12:00 Respiratory Rate 20 11/02/17 12:00 Blood Pressure 127/61 11/02/17 12:00 Pulse Oximetry 92 L 11/02/17 12:00 Critical Care Time Critical Care Time: No Clinical Decision Support HEART Score Questions History: Slightly suspicious EKG: Non-specific repolarization disturbance Age: 65 years+ Risk Factors: 3 or more Risk Factors or Hx of Atherosclerotic Disease Initial Troponin: Normal Limit Heart Score HEART Score: 5 Medical Decision Making MDM Narrative Medical decision making narrative: Patient with multiple risk factors for ACS. 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 Compensated heart failure with mildly elevated BNP. Lab Data Lab results reviewed: Yes I reviewed the patient's lab results. Result diagrams: 11/02/17 11:29 11/01/17 15:20 Lab Results 11/01/17 11/01/17 11/01/17 Range/Units 15:20 15:20 15:20 WBC 3.4 L (4.0-11.0) th/mm3 RBC 2.63 L (4.50-5.90) mil/mm3 Hgb 7.6 L (13.0-17.0) gm/dL Hct 23.9 L (39.0-51.0) % MCV 90.7 (80.0-100.0) fL MCH 29.1 (27.0-34.0) pg MCHC 32.0 (32.0-36.0) % RDW 17.8 H (11.6-17.2) % Plt Count 153 (150-450) th/mm3 MPV 10.0 (7.0-11.0) fL Neut % (Auto) 59.1 (16.0-70.0) % Lymph % (Auto) 34.1 (9.0-44.0) % Morton % (Auto) 6.1 (0.0-8.0) % Eos % (Auto) 0.5 (0.0-4.0) % Baso % (Auto) 0.2 (0.0-2.0) % Neut # (Auto) 2.0 (1.8-7.7) th/mm3 Lymph # (Auto) 1.2 (1.0-4.8) th/mm3 Morton # (Auto) 0.2 (0.0-0.9) th/mm3 Eos # (Auto) 0.0 (0.0-0.4) th/mm3 Baso # (Auto) 0.0 (0.0-0.2) th/mm3 WBC Differential . Differential Comment Auto diff final Smear Path Review Retic Count (0.4-3.0) % Absolute Retic (20.0-150.0) mil/L PT 11.6 (9.8-11.6) sec INR 1.1 Ratio APTT 23.3 L (24.3-30.1) sec Sodium 143 (136-145) meq/L Potassium 3.5 (3.5-5.1) meq/L Chloride 108 H (98-107) meq/L Carbon Dioxide 27.8 (21.0-32.0) meq/L Anion Gap 7 (5-15) meq/L BUN 9 (7-18) mg/dL Creatinine 1.08 (0.60-1.30) mg/dL Estimated GFR 65 L (>89) mL/min POC Glucose (68-110) mg/dl Random Glucose 142 H (74-106) mg/dL Calcium 8.8 (8.5-10.1) mg/dL Iron (65-175) mcg/dL TIBC (250-450) mcg/dL % Saturation (20-50) % Ferritin (26-388) ng/mL Troponin I Less than 0.02 L (0.02-0.05) ng/mL B-Natriuretic Peptide (0-100) pg/mL Blood Type Antibody Screen MTS Gel Crossmatch 11/01/17 11/01/17 11/01/17 Range/Units 15:20 15:20 15:20 WBC (4.0-11.0) th/mm3 RBC (4.50-5.90) mil/mm3 Hgb (13.0-17.0) gm/dL Hct (39.0-51.0) % MCV (80.0-100.0) fL MCH (27.0-34.0) pg MCHC (32.0-36.0) % RDW (11.6-17.2) % Plt Count (150-450) th/mm3 MPV (7.0-11.0) fL Neut % (Auto) (16.0-70.0) % Lymph % (Auto) (9.0-44.0) % Morton % (Auto) (0.0-8.0) % Eos % (Auto) (0.0-4.0) % Baso % (Auto) (0.0-2.0) % Neut # (Auto) (1.8-7.7) th/mm3 Lymph # (Auto) (1.0-4.8) th/mm3 Morton # (Auto) (0.0-0.9) th/mm3 Eos # (Auto) (0.0-0.4) th/mm3 Baso # (Auto) (0.0-0.2) th/mm3 WBC Differential Differential Comment Smear Path Review Retic Count (0.4-3.0) % Absolute Retic (20.0-150.0) mil/L PT (9.8-11.6) sec INR Ratio APTT (24.3-30.1) sec Sodium (136-145) meq/L Potassium (3.5-5.1) meq/L Chloride (98-107) meq/L Carbon Dioxide (21.0-32.0) meq/L Anion Gap (5-15) meq/L BUN (7-18) mg/dL Creatinine (0.60-1.30) mg/dL Estimated GFR (>89) mL/min POC Glucose (68-110) mg/dl Random Glucose (74-106) mg/dL Calcium (8.5-10.1) mg/dL Iron 61 L (65-175) mcg/dL TIBC 232 L (250-450) mcg/dL % Saturation 26.2 (20-50) % Ferritin 50 (26-388) ng/mL Troponin I (0.02-0.05) ng/mL B-Natriuretic Peptide 375 H (0-100) pg/mL Blood Type Antibody Screen MTS Gel Crossmatch 11/01/17 11/01/17 11/01/17 Range/Units 15:20 17:27 18:46 WBC (4.0-11.0) th/mm3 RBC (4.50-5.90) mil/mm3 Hgb (13.0-17.0) gm/dL Hct (39.0-51.0) % MCV (80.0-100.0) fL MCH (27.0-34.0) pg MCHC (32.0-36.0) % RDW (11.6-17.2) % Plt Count (150-450) th/mm3 MPV (7.0-11.0) fL Neut % (Auto) (16.0-70.0) % Lymph % (Auto) (9.0-44.0) % Morton % (Auto) (0.0-8.0) % Eos % (Auto) (0.0-4.0) % Baso % (Auto) (0.0-2.0) % Neut # (Auto) (1.8-7.7) th/mm3 Lymph # (Auto) (1.0-4.8) th/mm3 Morton # (Auto) (0.0-0.9) th/mm3 Eos # (Auto) (0.0-0.4) th/mm3 Baso # (Auto) (0.0-0.2) th/mm3 WBC Differential Differential Comment Smear Path Review Retic Count 1.9 (0.4-3.0) % Absolute Retic 52.3 (20.0-150.0) mil/L PT (9.8-11.6) sec INR Ratio APTT (24.3-30.1) sec Sodium (136-145) meq/L Potassium (3.5-5.1) meq/L Chloride (98-107) meq/L Carbon Dioxide (21.0-32.0) meq/L Anion Gap (5-15) meq/L BUN (7-18) mg/dL Creatinine (0.60-1.30) mg/dL Estimated GFR (>89) mL/min POC Glucose (68-110) mg/dl Random Glucose (74-106) mg/dL Calcium (8.5-10.1) mg/dL Iron (65-175) mcg/dL TIBC (250-450) mcg/dL % Saturation (20-50) % Ferritin (26-388) ng/mL Troponin I (0.02-0.05) ng/mL B-Natriuretic Peptide (0-100) pg/mL Blood Type A Positive Antibody Screen Negative MTS Gel Crossmatch See Detail 11/01/17 11/01/17 11/02/17 Range/Units 19:57 23:36 01:52 WBC (4.0-11.0) th/mm3 RBC (4.50-5.90) mil/mm3 Hgb (13.0-17.0) gm/dL Hct (39.0-51.0) % MCV (80.0-100.0) fL MCH (27.0-34.0) pg MCHC (32.0-36.0) % RDW (11.6-17.2) % Plt Count (150-450) th/mm3 MPV (7.0-11.0) fL Neut % (Auto) (16.0-70.0) % Lymph % (Auto) (9.0-44.0) % Morton % (Auto) (0.0-8.0) % Eos % (Auto) (0.0-4.0) % Baso % (Auto) (0.0-2.0) % Neut # (Auto) (1.8-7.7) th/mm3 Lymph # (Auto) (1.0-4.8) th/mm3 Morton # (Auto) (0.0-0.9) th/mm3 Eos # (Auto) (0.0-0.4) th/mm3 Baso # (Auto) (0.0-0.2) th/mm3 WBC Differential Differential Comment Smear Path Review Retic Count (0.4-3.0) % Absolute Retic (20.0-150.0) mil/L PT (9.8-11.6) sec INR Ratio APTT (24.3-30.1) sec Sodium (136-145) meq/L Potassium (3.5-5.1) meq/L Chloride (98-107) meq/L Carbon Dioxide (21.0-32.0) meq/L Anion Gap (5-15) meq/L BUN (7-18) mg/dL Creatinine (0.60-1.30) mg/dL Estimated GFR (>89) mL/min POC Glucose 158 H (68-110) mg/dl Random Glucose (74-106) mg/dL Calcium (8.5-10.1) mg/dL Iron (65-175) mcg/dL TIBC (250-450) mcg/dL % Saturation (20-50) % Ferritin (26-388) ng/mL Troponin I Less than 0.02 L Less than 0.02 L (0.02-0.05) ng/mL B-Natriuretic Peptide (0-100) pg/mL Blood Type Antibody Screen MTS Gel Crossmatch 11/02/17 11/02/17 11/02/17 Range/Units 08:20 11:29 12:54 WBC 3.5 L (4.0-11.0) th/mm3 RBC 3.44 L (4.50-5.90) mil/mm3 Hgb 9.7 L D (13.0-17.0) gm/dL Hct 30.7 L (39.0-51.0) % MCV 89.2 (80.0-100.0) fL MCH 28.0 (27.0-34.0) pg MCHC 31.5 L (32.0-36.0) % RDW 18.9 H (11.6-17.2) % Plt Count 158 (150-450) th/mm3 MPV 8.8 (7.0-11.0) fL Neut % (Auto) 67.3 (16.0-70.0) % Lymph % (Auto) 27.7 (9.0-44.0) % Morton % (Auto) 4.4 (0.0-8.0) % Eos % (Auto) 0.5 (0.0-4.0) % Baso % (Auto) 0.1 (0.0-2.0) % Neut # (Auto) 2.4 (1.8-7.7) th/mm3 Lymph # (Auto) 1.0 (1.0-4.8) th/mm3 Morton # (Auto) 0.2 (0.0-0.9) th/mm3 Eos # (Auto) 0.0 (0.0-0.4) th/mm3 Baso # (Auto) 0.0 (0.0-0.2) th/mm3 WBC Differential . Differential Comment Auto diff final Smear Path Review Retic Count (0.4-3.0) % Absolute Retic (20.0-150.0) mil/L PT (9.8-11.6) sec INR Ratio APTT (24.3-30.1) sec Sodium (136-145) meq/L Potassium (3.5-5.1) meq/L Chloride (98-107) meq/L Carbon Dioxide (21.0-32.0) meq/L Anion Gap (5-15) meq/L BUN (7-18) mg/dL Creatinine (0.60-1.30) mg/dL Estimated GFR (>89) mL/min POC Glucose 126 H 167 H (68-110) mg/dl Random Glucose (74-106) mg/dL Calcium (8.5-10.1) mg/dL Iron (65-175) mcg/dL TIBC (250-450) mcg/dL % Saturation (20-50) % Ferritin (26-388) ng/mL Troponin I (0.02-0.05) ng/mL B-Natriuretic Peptide (0-100) pg/mL Blood Type Antibody Screen MTS Gel Crossmatch Imaging Data Radiologist's impression: Ankle X-Ray 11/01/17 15:32 CONCLUSION: 1. Degenerative changes with some spurring at the talonavicular joint and calcaneus 2. No acute fracture. No soft tissue swelling Chest X-Ray 11/01/17 15:32 CONCLUSION: 1. Interstitial vascular prominence and cardiomegaly characteristic of mild congestive heart failure. 2. No evidence of consolidating airspace disease. ECG Data Attestation: I personally reviewed and interpreted this ECG as follows: Interpretation: EKG obtained at 1520 revealed sinus rhythm with a first-degree AV block and a ventricular rate of 82 bpm. VT interval 238 ms. QTc [address]-T wave abnormalities. No signs of acute ischemia. Discharge Plan Discharge Disposition Patient Disposition: 30 Still Patient Discharge Condition Condition: Stable Discharge Order Discharge Orders: Discharge Order (Routine); Ordered 11/02/17 Ordered By: Michael Chi Discharge Details Diagnosis: Atypical chest pain, Diabetic ulcer of ankle Physicians Team ED Provider: Moreno Lee Primary Care Provider: Margarito Mendoza Attending Provider: Sha Virk Status ED Status: Left Department Discharge Information Discharge Date/Time: 11/01/17 19:10
--- NOTE | 2017-11-01 16:03 | XR ---
EXAM DATE: 11/01/2017 4:00 PM EDT AGE/SEX: 87 years / Male INDICATIONS: Short of breath. CLINICAL DATA: This is the patient's initial encounter. Patient reports that signs and symptoms have been present for 1 day and indicates a pain score of 0/10. MEDICAL/SURGICAL HISTORY: . diabetes. . open heart surgery. [place] [facility] [place] . FINDINGS: Generalized interstitial vascular prominence is evident throughout both lungs. There is no significan t consolidating airspace disease. Heart is mildly enlarged. Median sternotomy wires from prior open heart surgery are noted. Osseous structures are stable. CONCLUSION: 1. Interstitial vascular prominence and cardiomegaly characteristic of mild congestive heart failure . 2. No evidence of consolidating airspace disease. Electronically signed by: Oscar Cheung MD 11/01/2017 4:02 PM EDT
[2017-11-01 16:06] LABS: Baso % (Auto) 0.2 % (0.0-2.0); Eos % (Auto) 0.5 % (0.0-4.0); Hematocrit 23.9 % (39.0-51.0); Hemoglobin 7.6 gm/dL (13.0-17.0); Lymph # (Auto) 1.2 th/mm3 (1.0-4.8); Lymph % (Auto) 34.1 % (9.0-44.0); Mean Corpuscular Hemoglobin 29.1 pg (27.0-34.0); Mean Corpuscular Volume 90.7 fL (80.0-100.0); Mono # (Auto) 0.2 th/mm3 (0.0-0.9); Mono % (Auto) 6.1 % (0.0-8.0); Neut % (Auto) 59.1 % (16.0-70.0); Platelet Count 153 th/mm3 (150-450); Red Blood Count 2.63 mil/mm3 (4.50-5.90); Red Cell Distribution Width 17.8 % (11.6-17.2); White Blood Count 3.4 th/mm3 (4.0-11.0)
[2017-11-01 16:17] LABS: Activated Partial Thrombo Time 23.3 sec (24.3-30.1); INR 1.1 Ratio; Prothrombin Time 11.6 sec (9.8-11.6)
--- NOTE | 2017-11-01 16:22 | XR ---
EXAM DATE: 11/01/2017 4:02 PM EDT AGE/SEX: 87 years / Male INDICATIONS: Right ankle pain, keeps hitting it with the wheelchair. CLINICAL DATA: This is the patient's initial encounter. Patient reports that signs and symptoms have been present for 4 - 6 months and indicates a pain score of 3/10. MEDICAL/SURGICAL HISTORY: . diabetes None. COMPARISON: No prior exams available for comparison. FINDINGS: Bony structures are intact and in normal alignment. Joints are intact without dislocation or signifi cant arthropathy. Osseous density is normal. Multiple surgical clips along the medial aspect of the distal lower leg may represent prior vein harvesting. Atherosclerotic calcification of the regional v asculature. Spurring at the talonavicular joint. Calcaneal spurs are also present. CONCLUSION: 1. Degenerative changes with some spurring at the talonavicular joint and calcaneus 2. No acute fracture. No soft tissue swelling Electronically signed by: Christiano Mcneal MD 11/01/2017 4:20 PM EDT
[2017-11-01 16:31] LABS: Anion Gap 7 meq/L (5-15); Blood Urea Nitrogen 9 mg/dL (7-18); Calcium 8.8 mg/dL (8.5-10.1); Carbon Dioxide 27.8 meq/L (21.0-32.0); Chloride 108 meq/L (98-107); Glomerular Filtration Rate 65 mL/min (>89); Glucose,Random 142 mg/dL (74-106); Potassium 3.5 meq/L (3.5-5.1); Sodium 143 meq/L (136-145)
[2017-11-01] MEDS ORDERED: Dextrose 50% in Water 50 ML Vial IV.PUSH PRN (17:57)
[2017-11-01] MEDS ORDERED: Acetaminophen 325 MG Tablet PO PRN (18:44)
[2017-11-01] MEDS ORDERED: Sodium Chlor 0.9% Inj 250 ML IV.SIG SCH ×2 (19:00)
--- NOTE | 2017-11-01 19:46 | P.HP ---
History of Present Illness Primary Care Physician: Margarito Mendoza DO Chief Complaint: Chest pain History of Present Illness: Mr. Stallworth is a pleasant 87 year old male with a history of CABG who presents to the ED due to 3-4 day duration of chest pain. He was prescribed an antibiotics for possibly UTI and perhaps coincidentally he started having substernal chest pain. He described his chest discomfort as pressure like, non- radiating, associated with nausea but no vomiting and mild diaphoresis. He took SL NTG which subsided his chest discomfort. He denies any fever, chills, cough. Denies any changes in bowel or bladder habits. No melena or hematochezia. On admission, his troponin was 0.02, Hgb 7.6. BNP 375. 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 - Tobacco History Tobacco Use In Past 30 Days: No Smoking Status: Former smoker Tobacco Type: Cigarettes - Alcohol History How Often Do You Have a Drink Containing Alcohol: Monthly or less - Substance Use History Substance History: No History of Abuse - Travel History Recent Travel in the [place] Within the Last 8 Weeks: No Recent Travel Out of the Country Within the Last 8 Weeks: No - Immunization History Tetanus Immunization: >5 Years Hx Influenza Vaccine This Season: No Medications and Allergies Active Medications: Active Medications Acetaminophen (Tylenol) 650 mg PO Q4H PRN PRN Reason: SEE LABEL COMMENTS Atenolol (Tenormin) 25 mg PO BID EMANUEL Dextrose (D50w Vial) 50 ml IV.PUSH UNSCH PRN PRN Reason: PER HYPOGLYCEMIA PROTOCOL Diphenhydramine HCl (Benadryl) 25 mg PO Q4H PRN PRN Reason: SEE LABEL COMMENTS Furosemide (Lasix Inj) 20 mg IV.PUSH ONCE ONE Stop: 11/01/17 18:45 Glucagon (Glucagon Inj) 1 mg OTHER PRN PRN PRN Reason: for Hypoglycemia Protocol Sodium Chloride (Ns Inj) 250 mls @ 15 mls/hr IV.SIG ONCE EMANUEL Stop: 11/02/17 11:39 Sodium Chloride (Ns Inj) 250 mls @ 15 mls/hr IV.SIG ONCE EMANUEL Stop: 11/02/17 11:39 Insulin Aspart (Novolog Insulin Correctional Sugar Inj) 0 unit SQ ACHS EMANUEL; Protocol Sodium Chloride (Ns Flush) 2 ml IV.FLUSH UNSCH PRN PRN Reason: FLUSH AFTER USING IV ACCESS Tamsulosin HCl (Flomax) 0.4 mg PO DAILY EMANUEL Allergies Allergy/AdvReac Type Severity Reaction Status Date / Time No Known Allergies Allergy Unknown Uncoded 02/21/17 14:37 Home Medications Medication Instructions Recorded Confirmed Type atenolol 25 mg PO BID 11/01/17 11/01/17 History coenzyme Q10 [Co Q-10] 30 mg PO DAILY 11/01/17 11/01/17 History docusate sodium 100 mg PO DAILY 11/01/17 11/01/17 History duloxetine 30 mg PO DAILY 11/01/17 11/01/17 History furosemide [Lasix] 20 mg PO DAILY 11/01/17 11/01/17 History gabapentin 100 mg PO TID 11/01/17 11/01/17 History glimepiride 0.5 mg PO QAM 11/01/17 11/01/17 History meloxicam 15 mg PO DAILY 11/01/17 11/01/17 History metformin 500 mg PO BID 11/01/17 11/01/17 History nitroglycerin 0.3 mg SUBLINGUAL Q5-15M PRN 11/01/17 11/01/17 History oxycodone 5 mg PO Q4-6H PRN 11/01/17 11/01/17 History sucralfate 1 g PO BID 11/01/17 11/01/17 History tamsulosin [Flomax] 0.4 mg PO DAILY 11/01/17 11/01/17 History Exam Vital signs: Vital Signs 11/01/17 15:14 11/01/17 15:23 11/01/17 15:32 Temperature Pulse Rate 81 84 89 Respiratory Rate 18 16 Blood Pressure 132/59 L 132/59 L Pulse Oximetry 93 L 93 L 95 11/01/17 17:40 11/01/17 19:42 Temperature 98.8 F Pulse Rate 90 95 H Respiratory Rate 16 16 Blood Pressure 151/100 H 175/81 H Pulse Oximetry 96 95 Intake & Output 11/01/17 11/01/17 11/02/17 06:59 18:59 06:59 Weight 73.936 kg Narrative: GENERAL: This is a well-nourished, well-developed patient, in no apparent distress. SKIN: No rashes, ecchymoses or lesions. Warm and dry. HEAD: Atraumatic. Normocephalic. No temporal or scalp tenderness. EYES: Pupils equal round and reactive. No injection or drainage. ENT: Nose without bleeding, purulent drainage or septal hematoma. Airway patent. NECK: Trachea midline. No lymphadenopathy. Supple, nontender, no meningeal signs. CARDIOVASCULAR: Regular rate and rhythm without murmurs, gallops, or rubs. No JVD. RESPIRATORY: Clear to auscultation. Breath sounds equal bilaterally. No wheezes , rales, or rhonchi. GASTROINTESTINAL: Abdomen soft, non-tender, nondistended. No guarding. MUSCULOSKELETAL: Extremities without clubbing, cyanosis, or edema. NEUROLOGICAL: Awake and alert. Cranial nerves II through XII intact. No focal neurological deficits. Normal speech. Results - Labs CBC & Chem 7: 11/01/17 15:20 11/01/17 15:20 Labs: Laboratory Results - last 24 hr 11/01/17 11/01/17 11/01/17 15:20 15:20 15:20 WBC 3.4 L RBC 2.63 L Hgb 7.6 L Hct 23.9 L MCV 90.7 MCH 29.1 MCHC 32.0 RDW 17.8 H Plt Count 153 MPV 10.0 Neut % (Auto) 59.1 Lymph % (Auto) 34.1 [place] % (Auto) 6.1 Eos % (Auto) 0.5 Baso % (Auto) 0.2 Neut # (Auto) 2.0 Lymph # (Auto) 1.2 [place] # (Auto) 0.2 Eos # (Auto) 0.0 Baso # (Auto) 0.0 WBC Differential . Differential Comment Auto diff final PT 11.6 INR 1.1 APTT 23.3 L Sodium 143 Potassium 3.5 Chloride 108 H Carbon Dioxide 27.8 Anion Gap 7 BUN 9 Creatinine 1.08 Estimated GFR 65 L Random Glucose 142 H Calcium 8.8 Troponin I Less than 0.02 L B-Natriuretic Peptide Blood Type Antibody Screen MTS Gel Crossmatch 11/01/17 11/01/17 11/01/17 15:20 17:27 18:46 WBC RBC Hgb Hct MCV MCH MCHC RDW Plt Count MPV Neut % (Auto) Lymph % (Auto) [place] % (Auto) Eos % (Auto) Baso % (Auto) Neut # (Auto) Lymph # (Auto) [place] # (Auto) Eos # (Auto) Baso # (Auto) WBC Differential Differential Comment PT INR APTT Sodium Potassium Chloride Carbon Dioxide Anion Gap BUN Creatinine Estimated GFR Random Glucose Calcium Troponin I B-Natriuretic Peptide 375 H Blood Type A Positive Antibody Screen Negative MTS Gel Crossmatch See Detail - Imaging Impressions Ankle X-Ray 11/01/17 15:32 CONCLUSION: 1. Degenerative changes with some spurring at the talonavicular joint and calcaneus 2. No acute fracture. No soft tissue swelling Chest X-Ray 11/01/17 15:32 CONCLUSION: 1. Interstitial vascular prominence and cardiomegaly characteristic of mild congestive heart failure. 2. No evidence of consolidating airspace disease. Caprini VTE Risk Assessment Caprini VTE Risk Assessment: Moderate/High Risk (score >= 2) Caprini Risk Assessment Model: Point Value = 1 Point Value = 2 Point Value = 3 Point Value = 5 Age 41-60 Minor surgery BMI > 25 kg/m2 Swollen legs Varicose veins or History of unexplained or recurrent spontaneous Oral contraceptives or hormone replacement Sepsis (< 1 month) Serious lung disease, including pneumonia (< 1 month) Abnormal pulmonary function Acute myocardial infarction Congestive heart failure (< 1 month) History of inflammatory bowel disease Medical patient at bed rest Age 61-74 Arthroscopic surgery Major open surgery (> 45 min) Laparoscopic surgery (> 45 min) Malignancy Confined to bed (> 72 hours) Immobilizing plaster cast Central venous access Age >= 75 History of VTE Family history of VTE Factor V Leiden Prothrombin [id number] Lupus anticoagulant Anticardiolipin antibodies Elevated serum homocysteine Heparin-induced thrombocytopenia Other congenital or acquired thrombophilia Stroke (< 1 month) Elective arthroplasty Hip, pelvis, or leg fracture Acute spinal cord injury (< 1 month) Prophylaxis Regimen: Total Risk Factor Score Risk Level Prophylaxis Regimen 0-1 Low Early ambulation 2 Moderate Order ONE of the following: *Sequential Compression Device (SCD) *Heparin 5000 units SQ BID 3-4 Higher Order ONE of the following medications: *Heparin 5000 units SQ TID *Enoxaparin/Lovenox 40 mg SQ daily (WT < 150 kg, CrCl > 30 mL/min) *Enoxaparin/Lovenox 30 mg SQ daily (WT < 150 kg, CrCl > 10-29 mL/min) *Enoxaparin/Lovenox 30 mg SQ BID (WT < 150 kg, CrCl > 30 mL/min) AND/OR *Sequential Compression Device (SCD) 5 or more Highest Order ONE of the following medications: *Heparin 5000 units SQ TID (Preferred with Epidurals) *Enoxaparin/Lovenox 40 mg SQ daily (WT < 150 kg, CrCl > 30 mL/min) *Enoxaparin/Lovenox 30 mg SQ daily (WT < 150 kg, CrCl > 10-29 mL/min) *Enoxaparin/Lovenox 30 mg SQ BID (WT < 150 kg, CrCl > 30 mL/min) AND *Sequential Compression Device (SCD) Assessment and Plan - Plan Mr. Stallworth is a pleasant 87 year old male with a history of CABG who presents to the ED due to substernal tight chest pressure with associated nausea and mild diaphoresis that started about 3-4 days ago. Chest pain Hx of CABG - Patient certainly has risk factors - diabetes, hx of CABG, age. - Will trend troponins and EKGs. - Pt already received Aspirin 162mg once - If troponins are negative, will avoid using daily aspirin. Patient takes Sucralfate - not certain if he has a history of peptic ulcer disease. Anemia Possible Myelodysplastic syndrome - No evidence of GI bleed - RDW is elevated. - Will obtain Iron profile, Ferritin level and retic count as well as peripheral smear - WBC is low as well - this raises the possibility of Myelodysplastic syndrome. compensated heart failure - BNP 375. No evidence of acute heart failure - Takes lasix at home. Will continue Torsemide 10mg Qday - Change Atenolol to Carvedilol. Hypertension - BP is slightly elevated. Will continue Carvedilol and add Amlodipine 5mg Qday. Full code. SCDs.
[2017-11-01] MEDS ORDERED: Atenolol 25 MG Tablet PO SCH (21:00)
[2017-11-01] MEDS: Carvedilol 12.5 MG Tablet PO SCH (21:39)
[2017-11-01 21:59] LABS: Reticulocyte Percent 1.9 % (0.4-3.0)
[2017-11-01 22:14] LABS: % Iron Saturation 26.2 % (20-50)
[2017-11-01] MEDS: Insulin NovoLOG Aspart Correctional Sugar Inj SQ SCH (23:40)
[2017-11-02] MEDS: Gabapentin 100 MG Capsule PO SCH ×2 (00:01→08:22)
[2017-11-02] MEDS: Carvedilol 12.5 MG Tablet PO SCH (08:21)
[2017-11-02] MEDS: Insulin NovoLOG Aspart Correctional Sugar Inj SQ SCH (08:22)
[2017-11-02] MEDS ORDERED: amLODIPine 5 MG Tablet PO SCH (09:00)
[2017-11-02] MEDS ORDERED: Sucralfate 1 GM Tablet PO SCH (09:00)
--- NOTE | 2017-11-02 10:33 | ECG ---
Date Performed: 11/01/2017 Time Performed: 15:20:40 PTAGE: 87 years EKG: Sinus rhythm WITH FIRST DEGREE AV BLOCK MODERATE INTRAVENTRICULAR CONDUCTION DELAY ABNORMAL ECG PREVIOUS TRACING : 02/22/2017 02.07 Since the previous tracing, no significant change noted DOCTOR: Angelia Campuzano Interpretating Date/Time 11/02/2017 10:32:56
--- NOTE | 2017-11-02 11:50 | P.PN ---
Subjective Interval history: Follow-up visit chest pain, anemia, CHF. Patient seen and examined today. Reports he is doing well. Patient states he received 1 unit of blood transfusion last night. Patient states that he does not really have any chest pain. States that he is on medication antibiotic by his podiatry has been following his right ankle wound. States that he is on it 75 mg and occasionally would upset his stomach and would have pain midepigastric region towards his chest side. States he is doing extremely okay and requesting to go home. Denies pain and discomfort. Denies SOB/ dyspnea. Denies chest pain, palpitations, headaches, dizziness. Denies fevers, chills, n/v/d. Denies dysuria. Physical Exam Vital signs: Vital Signs 11/01/17 15:14 11/01/17 15:23 11/01/17 15:32 Temperature Pulse Rate 81 84 89 Respiratory Rate 18 16 Blood Pressure 132/59 L 132/59 L Pulse Oximetry 93 L 93 L 95 11/01/17 17:40 11/01/17 19:42 11/01/17 21:31 Temperature 98.8 F 98.8 F Pulse Rate 90 95 H 94 H Respiratory Rate 16 16 18 Blood Pressure 151/100 H 175/81 H 173/77 H Pulse Oximetry 96 95 95 11/01/17 21:49 11/01/17 23:10 11/02/17 04:00 Temperature 97.9 F 98.3 F 98.7 F Pulse Rate 96 H 79 80 Respiratory Rate 16 16 16 Blood Pressure 167/74 H 140/67 151/71 H Pulse Oximetry 95 97 11/02/17 09:00 11/02/17 09:54 11/02/17 09:58 Temperature 98.8 F Pulse Rate 89 89 Respiratory Rate 20 Blood Pressure 175/79 H Pulse Oximetry 95 96 Intake & Output 11/01/17 11/02/17 11/02/17 18:59 06:59 18:59 Intake Total 500 / 500 Balance 500 / 500 Weight 73.936 kg Intake: Oral 500 / 500 Other Rbc As-3 Leukoreduced Unit [id number] Intake (Blood Product) Amt 0 / 0 Rbc As-3 Leukoreduced Unit 0 / 0 [id number] Other: Date of Last Bowel Movement 11/01/17 Narrative: GENERAL: This is a well-nourished, well-developed patient, in no apparent distress. SKIN: Warm and dry. Right ankle wound clean wound bed. HEENT: Normocephalic. Pupils equal round and reactive. Nose without bleeding. Airway patent. NECK: Trachea midline. CARDIOVASCULAR: Regular rate and rhythm without murmurs, gallops, or rubs. RESPIRATORY: Clear to auscultation. Breath sounds equal bilaterally. No wheezes , rales, or rhonchi. GASTROINTESTINAL: Abdomen soft, non-tender, nondistended. Bowel Sounds normoactive x4. MUSCULOSKELETAL: Extremities without clubbing, cyanosis, or edema. NEUROLOGICAL: Awake and alert. Oriented to place, person. No focal neuro deficit. Moves all extremities. Normal speech. Results - Labs CBC & Chem 7: 11/02/17 11:29 11/01/17 15:20 Laboratory Results - last 24 hr 11/01/17 11/01/17 11/01/17 15:20 15:20 15:20 WBC 3.4 L RBC 2.63 L Hgb 7.6 L Hct 23.9 L MCV 90.7 MCH 29.1 MCHC 32.0 RDW 17.8 H Plt Count 153 MPV 10.0 Neut % (Auto) 59.1 Lymph % (Auto) 34.1 [place] % (Auto) 6.1 Eos % (Auto) 0.5 Baso % (Auto) 0.2 Neut # (Auto) 2.0 Lymph # (Auto) 1.2 [place] # (Auto) 0.2 Eos # (Auto) 0.0 Baso # (Auto) 0.0 WBC Differential . Differential Comment Auto diff final Smear Path Review Retic Count Absolute Retic PT 11.6 INR 1.1 APTT 23.3 L Sodium 143 Potassium 3.5 Chloride 108 H Carbon Dioxide 27.8 Anion Gap 7 BUN 9 Creatinine 1.08 Estimated GFR 65 L POC Glucose Random Glucose 142 H Calcium 8.8 Iron TIBC % Saturation Ferritin Troponin I Less than 0.02 L B-Natriuretic Peptide Blood Type Antibody Screen MTS Gel Crossmatch 11/01/17 11/01/17 11/01/17 15:20 15:20 15:20 WBC RBC Hgb Hct MCV MCH MCHC RDW Plt Count MPV Neut % (Auto) Lymph % (Auto) [place] % (Auto) Eos % (Auto) Baso % (Auto) Neut # (Auto) Lymph # (Auto) [place] # (Auto) Eos # (Auto) Baso # (Auto) WBC Differential Differential Comment Smear Path Review Retic Count Absolute Retic PT INR APTT Sodium Potassium Chloride Carbon Dioxide Anion Gap BUN Creatinine Estimated GFR POC Glucose Random Glucose Calcium Iron 61 L TIBC 232 L % Saturation 26.2 Ferritin 50 Troponin I B-Natriuretic Peptide 375 H Blood Type Antibody Screen MTS Gel Crossmatch 11/01/17 11/01/17 11/01/17 15:20 17:27 18:46 WBC RBC Hgb Hct MCV MCH MCHC RDW Plt Count MPV Neut % (Auto) Lymph % (Auto) [place] % (Auto) Eos % (Auto) Baso % (Auto) Neut # (Auto) Lymph # (Auto) [place] # (Auto) Eos # (Auto) Baso # (Auto) WBC Differential Differential Comment Smear Path Review Retic Count 1.9 Absolute Retic 52.3 PT INR APTT Sodium Potassium Chloride Carbon Dioxide Anion Gap BUN Creatinine Estimated GFR POC Glucose Random Glucose Calcium Iron TIBC % Saturation Ferritin Troponin I B-Natriuretic Peptide Blood Type A Positive Antibody Screen Negative MTS Gel Crossmatch See Detail 11/01/17 11/01/17 11/02/17 19:57 23:36 01:52 WBC RBC Hgb Hct MCV MCH MCHC RDW Plt Count MPV Neut % (Auto) Lymph % (Auto) [place] % (Auto) Eos % (Auto) Baso % (Auto) Neut # (Auto) Lymph # (Auto) [place] # (Auto) Eos # (Auto) Baso # (Auto) WBC Differential Differential Comment Smear Path Review Retic Count Absolute Retic PT INR APTT Sodium Potassium Chloride Carbon Dioxide Anion Gap BUN Creatinine Estimated GFR POC Glucose 158 H Random Glucose Calcium Iron TIBC % Saturation Ferritin Troponin I Less than 0.02 L Less than 0.02 L B-Natriuretic Peptide Blood Type Antibody Screen MTS Gel Crossmatch 11/02/17 08:20 WBC RBC Hgb Hct MCV MCH MCHC RDW Plt Count MPV Neut % (Auto) Lymph % (Auto) [place] % (Auto) Eos % (Auto) Baso % (Auto) Neut # (Auto) Lymph # (Auto) [place] # (Auto) Eos # (Auto) Baso # (Auto) WBC Differential Differential Comment Smear Path Review Retic Count Absolute Retic PT INR APTT Sodium Potassium Chloride Carbon Dioxide Anion Gap BUN Creatinine Estimated GFR POC Glucose 126 H Random Glucose Calcium Iron TIBC % Saturation Ferritin Troponin I B-Natriuretic Peptide Blood Type Antibody Screen MTS Gel Crossmatch - Imaging Impressions Ankle X-Ray 11/01/17 15:32 CONCLUSION: 1. Degenerative changes with some spurring at the talonavicular joint and calcaneus 2. No acute fracture. No soft tissue swelling Chest X-Ray 11/01/17 15:32 CONCLUSION: 1. Interstitial vascular prominence and cardiomegaly characteristic of mild congestive heart failure. 2. No evidence of consolidating airspace disease. Assessment and Plan - Plan Mr. Stallworth is a pleasant 87 year old male with a history of CABG who presents to the ED due to 3-4 day duration of chest pain. He was prescribed an antibiotics for possibly UTI and perhaps coincidentally he started having substernal chest pain Chest pain Hx of CABG -Patient certainly has risk factors - diabetes, hx of CABG, age. -EKG first-degree AV block moderate intraventricular conduction delay. No ST changes. -Pt already received Aspirin 162mg once -Troponins negative -Denies chest pain. States he has been denying chest pain. Anemia Possible Myelodysplastic syndrome -No evidence of GI bleed -RDW is elevated. -Obtain Iron profile low iron and total iron binding capacity. Percent saturation within normal and ferritin. May start iron supplements. -WBC is low as well - this raises the possibility of Myelodysplastic syndrome. Follow up in the outpatient -Patient states he has always been having anemia. Needing to go to the hospital for blood transfusion as instructed by his MD. Compensated heart failure - BNP 375. No evidence of acute heart failure - Takes lasix at home. Will continue Torsemide 10mg Qday - Change Atenolol to Carvedilol. Hypertension - BP is slightly elevated. Will continue Carvedilol and add Amlodipine 5mg Qday. Right Ankle wound -Followed by out patient podiatry -X-ray showed 1. Degenerative changes with some spurring at the talonavicular joint and calcaneus. 2. No acute fracture. No soft tissue swelling Full code. SCDs. 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 nursing, Dr. Virk Discharge Planning: Plan to DC home today
--- NOTE | 2017-11-02 12:19 | P.DCO ---
- Home Health Nursing Order: Medical education, Signs/symptoms of disease process, Diabetic education , Wound care and dressing changes, Nursing assessment with vital signs - Case Management Consult Yes - Certification I have seen patient Srinivas Stallworth on 11/02/17. My clinical findings support the need for the requested home health care services because: Limited ability to care for self, Infection with risk of complications I certify that my clinical findings support that this patient is homebound because: Impaired cognitive ability/safety, Unsafe to leave home unassisted
[2017-11-02 12:40] LABS: Baso % (Auto) 0.1 % (0.0-2.0); Eos % (Auto) 0.5 % (0.0-4.0); Hematocrit 30.7 % (39.0-51.0); Hemoglobin 9.7 gm/dL (13.0-17.0); Lymph % (Auto) 27.7 % (9.0-44.0); Mean Corpuscular HGB Conc 31.5 % (32.0-36.0); Mean Corpuscular Volume 89.2 fL (80.0-100.0); Mean Platelet Volume 8.8 fL (7.0-11.0); Mono # (Auto) 0.2 th/mm3 (0.0-0.9); Mono % (Auto) 4.4 % (0.0-8.0); Neut # (Auto) 2.4 th/mm3 (1.8-7.7); Neut % (Auto) 67.3 % (16.0-70.0); Platelet Count 158 th/mm3 (150-450); Red Blood Count 3.44 mil/mm3 (4.50-5.90); Red Cell Distribution Width 18.9 % (11.6-17.2); White Blood Count 3.5 th/mm3 (4.0-11.0)
== END 2017-11-02 15:08 | disposition home or self-care (01) ==
LOC: NEPHCDU 15:11 → NEPC 15:11 → NEDA 18:05 → INTOOBSV 18:05 → NEDA 19:10 → NEPHCDU 19:21
PROVIDERS: ADMIT Internal Medicine; ATTEND Internal Medicine
DX: R61 Generalized hyperhidrosis; Z95.1 Presence of aortocoronary bypass graft; H91.10 Presbycusis, unspecified ear; Z87.891 Personal history of nicotine dependence; Z79.899 Other long term (current) drug therapy; L97.319 Non-pressure chronic ulcer of right ankle with unspecified severity; D72.819 Decreased white blood cell count, unspecified; R11.0 Nausea; R07.89 Other chest pain; I11.0 Hypertensive heart disease with heart failure; I50.9 Heart failure, unspecified; E11.622 Type 2 diabetes mellitus with other skin ulcer; I25.10 Atherosclerotic heart disease of native coronary artery without angina pectoris; D64.9 Anemia, unspecified; I44.0 Atrioventricular block, first degree